=== PATIENT | male | born 1980 | race Caucasian/White ===

== ENCOUNTER 2021-07-14 11:29 | Emergency (ER) | payer SELFPAY ==
[2021-07-14] MEDS ORDERED: Ketorolac Tromethamine 30 MG/ML VIAL ONE (12:31)
[2021-07-14 12:51] LABS: Bilirubin Negative (Negative); Blood, Urine Negative (Negative); Clarity Clear (Clear); Glucose, Urine (Dipstick) Normal (Negative); Ketone, Urine Negative (Negative); Leukocyte Negative Leu/uL (Negative); Nitrite Negative (Negative); Protein, Urine (Dipstick) Negative (Neg-Trace); Specific Gravity, Urine 1.022 (1.002-1.036); Urobilinogen Normal mg/dL (Less than 2)
== END 2021-07-14 14:16 | disposition home or self-care (01) ==
LOC: ERS 11:29
DX: R10.30 Lower abdominal pain, unspecified (principal); F17.210 Nicotine dependence, cigarettes, uncomplicated
CPT/HCPCS: 76870; 81003; 93976; 96372; J1885